=== PATIENT | male | born 1955 | race Caucasian/White ===

== ENCOUNTER 2022-08-22 04:43 | Day surgery (SDC) | payer OTHER ==
[2022-08-21 12:46] VITALS: BMI 31.5
[2022-08-22 10:28] VITALS: RESP 18
[2022-08-22 11:49] VITALS: BP 118/78; PULSE 60; TEMP 97
== END 2022-08-22 11:55 | disposition home or self-care (01) ==
LOC: JASU-ENDO 04:43
PROVIDERS: ATTEND Internal Medicine Gastroenterology
PROC: 0DJD8ZZ Inspection of Lower Intestinal Tract, Via Natural or Artificial Opening Endoscopic (ICD-10-PCS; principal; 2022-08-22 10:30)
DX: Z12.11 Encounter for screening for malignant neoplasm of colon (principal); K57.30 Diverticulosis of large intestine without perforation or abscess without bleeding; Z86.010 Personal history of colon polyps; Z80.0 Family history of malignant neoplasm of digestive organs